=== PATIENT | female | born 1980 | race Hispanic/Latino ===

== ENCOUNTER 2016-10-25 14:14 | Emergency (ER) | payer BC ==
[2016-10-25 14:14] VITALS: BMI 18.8
[2016-10-25 14:22] VITALS: BP 119/82; PULSE 64; RESP 18; TEMP 97.7; O2SAT 100
--- NOTE | 2016-10-25 14:50 | ED PDOC ---
Arrival/HPI - General Chief Complaint: Abdominal Pain Time Seen by Provider: 10/25/16 14:36 Historian: Patient - History of Present Illness Narrative History of Present Illness (Text): 10/25/16 14:31 A 36 year old female, whose past medical history includes an ovarian cyst, presents to the emergency department complaining of right lower quadrant abdominal pain that began 2 hours ago. Pain is intermittent and described as a sharp burning pain alternating with a dull achy pain. Patient denies any nausea , vomiting, diarrhea, bowel changes, urinary changes, vaginal bleeding or any other complaints at this time. Patient reports she does not get her menstrual cycle because she in on control. PMD: Dr. Kenyon Time/Duration: 1-3 hours Symptom Onset: Sudden Symptom Course: Intermittent Quality: Aching, Burning, Other (sharp and dull) Activities at Onset: Rest Context: Home Past Medical History - Provider Review Nursing Documentation Reviewed: Yes - Infectious Disease Hx of Infectious Diseases: None - Tetanus Immunization Tetanus Immunization: Up to Date - Past Medical History Past Medical History: No Previous - Neurological Hx Migraine: Yes - Musculoskeletal/Rheumatological Hx Falls: No - Genitourinary/Gynecological Other/Comment: pre eclampsia - Psychiatric Hx Depression: No Hx Emotional Abuse: No Hx Physical Abuse: No Hx Substance Use: No - Past Surgical History Past Surgical History: No Previous - Surgical History Other/Comment: Left breast tumor removal. - Anesthesia Hx Anesthesia Reactions: No Hx Malignant Hyperthermia: No - Suicidal Assessment Feels Threatened In Home Enviroment: No Family/Social History - Physician Review Nursing Documentation Reviewed: Yes Family/Social History: No Known Family HX Smoking Status: Never Smoked Hx Alcohol Use: Yes (Wine) Frequency of alcohol use: Socially Hx Substance Use: No Hx Substance Use Treatment: No Allergies/Home Meds Allergies/Adverse Reactions: Allergies Penicillins Allergy (Verified 10/25/16 14:22) FEVER Sulfa (Sulfonamide Antibiotics) Adverse Reaction (Verified 10/25/16 14:22) FEVER sulfamethoxazole [From Bactrim] Adverse Reaction (Verified 10/25/16 14:22) FEVER trimethoprim [From Bactrim] Adverse Reaction (Verified 10/25/16 14:22) FEVER mmr Allergy (Uncoded 10/25/16 14:22) RASH Home Medications: Home Meds Medication Instructions Recorded Confirmed Citalopram Hydrobromide [Celexa] 40 mg PO DAILY 10/25/16 10/25/16 buPROPion [Bupropion HCl] 150 mg PO DAILY 10/25/16 10/25/16 Review of Systems - Physician Review All systems were reviewed & negative as marked: Yes - Review of Systems Gastrointestinal: Abdominal Pain. absent: Stool Changes, Diarrhea, Nausea, Vomiting Genitourinary Female: absent: Urine Output Changes, Vaginal Bleeding Physical Exam Vital Signs Reviewed: Yes Vital Signs Temp Pulse Resp BP Pulse Ox 10/25/16 14:16 97.7 F 64 18 119/82 100 Temperature: Afebrile Blood Pressure: Normal Pulse: Regular Respiratory Rate: Normal Appearance: Positive for: Well-Appearing, Non-Toxic, Comfortable Pain Distress: None Mental Status: Positive for: Alert and Oriented X 3 - Systems Exam Head: Present: Atraumatic, Normocephalic Pupils: Present: PERRL Extroacular Muscles: Present: EOMI Conjunctiva: Present: Normal Mouth: Present: Moist Mucous Membranes Neck: Present: Normal Range of Motion Respiratory/Chest: Present: Clear to Auscultation, Good Air Exchange. No: Respiratory Distress, Accessory Muscle Use Cardiovascular: Present: Regular Rate and Rhythm, Normal S1, S2. No: Murmurs Abdomen: Present: Normal Bowel Sounds. No: Tenderness, Distention, Peritoneal Signs, Rebound, Guarding Genitourinary/Pelvic Exam: Present: Normal External Genitalia, Other (Female Border Guard (Scribe - Dimpal ) present). No: Vaginal Discharge, Vaginal Bleeding , Vaginal Lesions, Adenexal Tenderness, Cervical Motion Tendernes Back: Present: Normal Inspection Upper Extremity: Present: Normal Inspection. No: Cyanosis, Edema Lower Extremity: Present: Normal Inspection. No: Edema Neurological: Present: GCS=15, CN II-XII Intact, Speech Normal Skin: Present: Warm, Dry, Normal Color. No: Rashes Psychiatric: Present: Alert, Oriented x 3, Normal Insight, Normal Concentration Medical Decision Making ED Course and Treatment: 10/25/16 14:31 Impression: A 36 year old female with right lower quadrant pain. Differential Diagnosis included but are not limited to: Appendicitis vs. ovarian torsion vs. ovarian cyst vs. uti Plan: -- Pelvis ultrasound -- Reassess and disposition Prior Visits: Notes and results from previous visits were reviewed. The patient last presented to the emergency department on 02/09/16 for evaluation of after a syncopal episode. Progress Notes: 10/25/16 16:00 Pelvis ultrasound: Creator : Charan Mcdermott MD COMPARISON: None available. FINDINGS: UTERUS: Measures 8.8 x 4.1 x 5.3 cm. There is a posterior subserosal fibroid, 1.3 x 1.1 x 1.2 Cm. No other uterine mass is identified. ENDOMETRIUM: Measures 7 mm in diameter. Unremarkable. CERVIX: No cervical abnormality identified. RIGHT OVARY: Measures 3.1 x 2.2 x 2.9 cm. No solid mass. Normal flow. LEFT OVARY: Measures 4.5 x 3.3 x 3.5 cm. No solid mass. Normal flow. 1.4 cm follicular cyst. 2.3 x 2.4 x 2.5 cm simple cyst, likely physiologic. FREE FLUID: No significant free fluid noted. OTHER FINDINGS: None. IMPRESSION: 2.5 cm simple left ovarian cyst, presumed physiologic. 1.3 cm sub serosal posterior uterine fibroid. Otherwise unremarkable. 10/25/16 17:21 Labs and ua grossly normal. Poc negative. On reevaluation, patient feels better. Spoke to Dr. Nunez who agrees with dispo. She was given detailed return instructions. - Lab Interpretations Lab Results: 10/25/16 14:55 10/25/16 14:55 Lab Results 10/25/16 16:27: Urine Color Yellow, Urine Appearance Clear, Urine pH 7.0, Ur Specific [place] <= 1.005, Urine Protein Negative, Urine Glucose (UA) Negative, Urine Ketones Negative, Urine Blood Negative, Urine Nitrate Negative, Urine Bilirubin Negative, Urine Urobilinogen 0.2, Ur Leukocyte Esterase Negative 10/25/16 14:55: WBC 5.4, RBC 3.75, Hgb 11.0 L, Hct 32.8 L, MCV 87.5, MCH 29.3, MCHC 33.5, RDW 15.5 H, Plt Count 229, MPV 10.3, Gran % 60.7, Lymph % (Auto) 29.6 , [place] % (Auto) 7.7 H, Eos % (Auto) 1.8, Baso % (Auto) 0.2, Gran # 3.30, Lymph # 1.6, [place] # 0.4, Eos # 0.1, Baso # 0.01, Sodium 136, Potassium 3.6, Chloride 100, Carbon Dioxide 28, Anion Gap 12, BUN 13, Creatinine 0.8, Est GFR ( Amer) > 60, Est GFR (Non-Af Amer) > 60, Random Glucose 81, Calcium 9.0, Phosphorus 3.7, Magnesium 2.0, Total Bilirubin 0.4, AST 29, ALT 19, Alkaline Phosphatase 47, Total Protein 7.6, Albumin 4.1, Globulin 3.5, Albumin/Globulin Ratio 1.2, Lipase 118 - RAD Interpretation Radiology Orders: 10/25/16 14:38 TRANSVAGINAL [US] Stat - Medication Orders Current Medication Orders: Discontinued Medications Ketorolac Tromethamine (Toradol) 30 mg IVP STAT STA Stop: 10/25/16 14:40 Last Admin: 10/25/16 14:59 Dose: 30 MG IVP Administration Document 10/25/16 14:59 KYLIE (Rec: 10/25/16 14:59 KYLIE [id number]) Charges for Administration # of IVP Administrations 1 - Scribe Statement The provider has reviewed the documentation as recorded by the Scribe Parvin Conn Provider Scribe Attestation: All medical record entries made by the Scribe were at my direction and personally dictated by me. I have reviewed the chart and agree that the record accurately reflects my personal performance of the history, physical exam, medical decision making, and the department course for this patient. I have also personally directed, reviewed, and agree with the discharge instructions and disposition. Disposition/Present on Arrival - Present on Arrival Any Indicators Present on Arrival: No History of DVT/PE: No History of Uncontrolled Diabetes: No Urinary Catheter: No History of Decub. Ulcer: No History Surgical Site Infection Following: None - Disposition Have Diagnosis and Disposition been Completed?: Yes Diagnosis: Constipation, Ovarian cyst Disposition: HOME/ ROUTINE Disposition Time: 17:13 Patient Plan: Discharge Condition: GOOD Discharge Instructions (ExitCare): Ovarian Cyst (ED) Additional Instructions: Follow up with PMD within 2 days. Return to ED if condition worsens. High fiber for constipation. Follow-up with paying teller for ovarian cysts Referrals: Cielo Kenyon MD [Primary Care Provider] - Follow up with primary
[2016-10-25 15:03] LABS: ADD MANUAL DIFF? NO
[2016-10-25 15:08] LABS: BASO # 0.01 K/mm3 (0.0-2.0); BASO % 0.2 % (0.0-3.0); EOS # 0.1 (0.0-0.7); EOS % 1.8 % (1.5-5.0); GRAN % 60.7 % (50.0-68.0); HEMATOCRIT 32.8 % (36.0-48.0); LYMPH # 1.6 (1.2-3.4); LYMPH % 29.6 % (22.0-35.0); MEAN CELL VOLUME 87.5 fL (80.0-105.0); MEAN CORPUSCULAR HEMOGLOBIN 29.3 pg (25.0-35.0); MEAN CORPUSCULAR HGB CONC 33.5 g/dl (31.0-37.0); MEAN PLATELET VOLUME 10.3 fl (7.0-11.0); MONO # 0.4 (0.1-0.6); MONO % 7.7 % (1.0-6.0); PLATELET COUNT 229 10^3/uL (120.0-450.0); RED CELL DISTRIBUTION WIDTH 15.5 % (11.5-14.5); WHITE BLOOD COUNT 5.4 10^3/ul (4.5-11.0)
[2016-10-25 15:16] LABS: ALB/GLOB RATIO 1.2 (1.1-1.8); ALKALINE PHOSPHATASE 47 U/L (38-133); ALT/SGPT 19 U/L (7-56); AST/SGOT 29 U/L (15-39); BILIRUBIN,TOTAL 0.4 mg/dL (0.2-1.3); BLOOD UREA NITROGEN 13 mg/dL (7-21); CARBON DIOXIDE 28 mmol/L (21-33); CHLORIDE 100 mmol/L (98-107); GFR AFRICAN-AMERICAN > 60; GLUCOSE,RANDOM 81 mg/dL (70-110); LIPASE 118 U/L (23-300); PHOSPHOROUS 3.7 mg/dL (2.5-4.5); POTASSIUM 3.6 mmol/L (3.6-5.0); SODIUM 136 mmol/L (132-148); TOTAL PROTEIN 7.6 g/dL (5.8-8.3)
--- NOTE | 2016-10-25 15:53 | US ---
HISTORY: RLQ pain, eval ovaries and appendix if possible COMPARISON: None available. TECHNIQUE: Transabdominal and transvaginal FINDINGS: UTERUS: Measures 8.8 x 4.1 x 5.3 cm. There is a posterior subserosal fibroid, 1.3 x 1.1 x 1.2 Cm. No other uterine mass is identified. ENDOMETRIUM: Measures 7 mm in diameter. Unremarkable. CERVIX: No cervical abnormality identified. RIGHT OVARY: Measures 3.1 x 2.2 x 2.9 cm. No solid mass. Normal flow. LEFT OVARY: Measures 4.5 x 3.3 x 3.5 cm. No solid mass. Normal flow. 1.4 cm follicular cyst. 2.3 x 2.4 x 2.5 cm simple cyst, likely physiologic. FREE FLUID: No significant free fluid noted. OTHER FINDINGS: None. IMPRESSION: 2.5 cm simple left ovarian cyst, presumed physiologic. 1.3 cm sub serosal posterior uterine fibroid. Otherwise unremarkable.
[2016-10-25 16:58] LABS: URINE APPEARANCE CLEAR (CLEAR); URINE BILIRUBIN NEGATIVE (NEGATIVE); URINE BLOOD NEGATIVE (NEGATIVE); URINE COLOR YELLOW (YELLOW); URINE GLUCOSE (UA) NEGATIVE (NEGATIVE); URINE KETONE NEGATIVE (NEGATIVE); URINE LEUKOCYTE ESTERASE NEGATIVE Leu/uL (NEGATIVE); URINE PROTEIN NEGATIVE mg/dL (<30 mg/dL); URINE UROBILINOGEN 0.2 E.U./dL (<1 E.U./dL)
== END 2016-10-25 17:22 | disposition home or self-care (01) ==
LOC: ED 14:14
DX: K59.00 Constipation, unspecified (principal); N83.202 Unspecified ovarian cyst, left side
CPT/HCPCS: 76830; 80053; 81003; 83690; 83735; 84100; 85025; 96374; 99284; J1885

== ENCOUNTER 2018-03-30 14:06 | Emergency (ER) | payer BC ==
[2018-03-30 14:07] VITALS: BMI 18.8
[2018-03-30 14:44] VITALS: RESP 18; TEMP 99.3
[2018-03-30] MEDS ORDERED: Sodium Chloride 0.9% 1,000 ML IV STA (14:47)
[2018-03-30 15:09] LABS: BASO # 0.03 K/mm3 (0.0-2.0); BASO % 0.5 % (0.0-3.0); EOS # 0.1 (0.0-0.7); EOS % 1.1 % (1.5-5.0); GRAN # 3.45 (1.4-6.5); GRAN % 62.6 % (50.0-68.0); HEMOGLOBIN 10.8 g/dL (12.0-16.0); LYMPH # 1.3 (1.2-3.4); LYMPH % 23.8 % (22.0-35.0); MEAN CELL VOLUME 82.1 fl (80.0-105.0); MEAN CORPUSCULAR HEMOGLOBIN 27.7 pg (25.0-35.0); MEAN CORPUSCULAR HGB CONC 33.8 g/dl (31.0-37.0); MONO # 0.7 (0.1-0.6); RBC 3.9 10^6/uL (3.5-6.1); RED CELL DISTRIBUTION WIDTH 13.6 % (11.5-14.5); URINE APPEARANCE CLEAR (CLEAR); URINE BILIRUBIN NEGATIVE (NEGATIVE); URINE BLOOD NEGATIVE (NEGATIVE); URINE COLOR YELLOW (YELLOW); URINE GLUCOSE (UA) NEGATIVE (NEGATIVE); URINE LEUKOCYTE ESTERASE NEGATIVE Leu/uL (NEGATIVE); URINE PROTEIN NEGATIVE mg/dL (<30 mg/dL); URINE UROBILINOGEN 0.2 E.U./dL (<1 E.U./dL); WHITE BLOOD COUNT 5.5 10^3/ul (4.5-11.0)
[2018-03-30 15:20] LABS: ALB/GLOB RATIO 1.3 (1.1-1.8); ALBUMIN 4.5 g/dL (3.0-4.8); ALT/SGPT 57 U/L (7-56); AST/SGOT 45 U/L (14-36); BLOOD UREA NITROGEN 13 mg/dL (7-21); CALCIUM 9.1 mg/dL (8.4-10.5); GFR NON-AFRICAN AMERICAN > 60; LIPASE 228 U/L (23-300)
[2018-03-30] MEDS ORDERED: Iohexol 350 MG/100 ML VIAL ONE (15:53)
--- NOTE | 2018-03-30 17:21 | CT ---
Date of service: 03/30/2018 PROCEDURE: CT Abdomen and Pelvis with contrast HISTORY: LLQ tenderness COMPARISON: Abdominal ultrasound performed 06/10/14 TECHNIQUE: Contrast dose: 100 mL Omnipaque 350 Radiation dose: Total exam DLP = 226.06 mGy-cm. This CT exam was performed using one or more of the following dose reduction techniques: Automated exposure control, adjustment of the mA and/or kV according to patient size, and/or use of iterative reconstruction technique. FINDINGS: LOWER THORAX: No visible consolidation, pleural effusion, or pneumothorax. Bilateral partially imaged breast prostheses. LIVER: Unremarkable. GALLBLADDER AND BILE DUCTS: Unremarkable. PANCREAS: Unremarkable. SPLEEN: Unremarkable. ADRENALS: Unremarkable. KIDNEYS AND URETERS: The kidneys enhance symmetrically. No hydronephrosis or obstructing calculus identified. Too small to characterize right renal hypodensity; statistically likely cysts. VASCULATURE: No aortic aneurysm. BOWEL: Stomach is nondistended. Lack of oral contrast limits evaluation for bowel pathology. Bowel loops appear within normal limits of caliber without evidence of obstruction. Moderate constipation. APPENDIX: No secondary signs of acute appendicitis. PERITONEUM: No significant free fluid. No definite free air. LYMPH NODES: No bulky adenopathy identified. BLADDER: Unremarkable. REPRODUCTIVE: Uterus is present. 1.8 x 2.9 cm left pelvic cystic lesion, likely ovarian cyst. BONES: No acute osseous abnormality is detected. OTHER FINDINGS: None. IMPRESSION: Moderate constipation. 1.8 x 2.9 cm probable left ovarian cyst. Recommend further evaluation with pelvic ultrasound. Too small to characterize right renal hypodensity; statistically likely cysts.
--- NOTE | 2018-03-30 19:15 | ED PDOC ---
Arrival/HPI - General Chief Complaint: Abdominal Pain Time Seen by Provider: 03/30/18 14:46 Historian: Patient - History of Present Illness Narrative History of Present Illness (Text): 03/30/18 19:12 38 year old female, with no significant past medical history, who presents to the ED c/o LLQ pain x 3-4 days. Patient states pain radiates to back occasionally. Patient states her menstrual period is 3 days late. Patient denies any fever, chills, vaginal discharge/bleeding, hematuria, dysuria, o any other complaints. Time/Duration: < week (3-4 days) Symptom Onset: Gradual Symptom Course: Unchanged Activities at Onset: Light Context: Home Past Medical History - Provider Review Nursing Documentation Reviewed: Yes - Infectious Disease Hx of Infectious Diseases: None - Tetanus Immunization Tetanus Immunization: Up to Date - Reproductive Menopause: No - Past Medical History Past Medical History: No Previous - Cardiac Hx Cardiac Disorders: No - Pulmonary Hx Respiratory Disorders: No - Neurological Hx Migraine: Yes - Musculoskeletal/Rheumatological Hx Falls: No - Genitourinary/Gynecological Other/Comment: pre eclampsia - Psychiatric Hx Depression: No Hx Emotional Abuse: No Hx Physical Abuse: No Hx Substance Use: No - Past Surgical History Past Surgical History: No Previous - Surgical History Other/Comment: Left breast tumor removal. - Anesthesia Hx Anesthesia: Yes Hx Anesthesia Reactions: No Hx Malignant Hyperthermia: No - Suicidal Assessment Feels Threatened In Home Enviroment: No Family/Social History - Physician Review Nursing Documentation Reviewed: Yes Family/Social History: Unknown Family HX Smoking Status: Never Smoked Hx Alcohol Use: Yes (Wine) Hx Substance Use: No Hx Substance Use Treatment: No Allergies/Home Meds Allergies/Adverse Reactions: Allergies Penicillins Allergy (Verified 03/30/18 14:40) FEVER Sulfa (Sulfonamide Antibiotics) Adverse Reaction (Verified 03/30/18 14:40) FEVER sulfamethoxazole [From Bactrim] Adverse Reaction (Verified 03/30/18 14:40) FEVER trimethoprim [From Bactrim] Adverse Reaction (Verified 03/30/18 14:40) FEVER mmr Allergy (Uncoded 10/25/16 14:22) RASH Review of Systems - Physician Review All systems were reviewed & negative as marked: Yes - Review of Systems Constitutional: Normal Eyes: Normal ENT: Normal Respiratory: Normal. absent: SOB, Cough Cardiovascular: Normal. absent: Chest Pain Gastrointestinal: Abdominal Pain (LLQ pain) Genitourinary Female: Normal. absent: Dysuria, Frequency Musculoskeletal: Normal. absent: Back Pain, Neck Pain Skin: Normal. absent: Rash Neurological: Normal. absent: Headache, Dizziness Endocrine: Normal Hemo/Lymphatic: Normal Psychiatric: Normal Physical Exam Vital Signs Reviewed: Yes Vital Signs Temp Pulse Resp BP Pulse Ox 03/30/18 19:35 80 18 108/68 100 03/30/18 18:00 78 18 110/70 98 03/30/18 16:07 82 18 105/70 98 03/30/18 14:31 99.3 F 87 18 125/85 100 Temperature: Afebrile Blood Pressure: Normal Pulse: Regular Respiratory Rate: Normal Appearance: Positive for: Well-Appearing, Non-Toxic, Comfortable Pain Distress: None Mental Status: Positive for: Alert and Oriented X 3 - Systems Exam Head: Present: Atraumatic, Normocephalic Pupils: Present: PERRL Extroacular Muscles: Present: EOMI Conjunctiva: Present: Normal Mouth: Present: Moist Mucous Membranes Neck: Present: Normal Range of Motion Respiratory/Chest: Present: Clear to Auscultation, Good Air Exchange. No: Respiratory Distress, Accessory Muscle Use Cardiovascular: Present: Regular Rate and Rhythm, Normal S1, S2. No: Murmurs Abdomen: No: Tenderness, Distention, Peritoneal Signs Back: Present: Normal Inspection Upper Extremity: Present: Normal Inspection. No: Cyanosis, Edema Lower Extremity: Present: Normal Inspection. No: Edema Neurological: Present: GCS=15, CN II-XII Intact, Speech Normal Skin: Present: Warm, Dry, Normal Color. No: Rashes Psychiatric: Present: Alert, Oriented x 3, Normal Insight, Normal Concentration Medical Decision Making ED Course and Treatment: 03/30/18 19:16 Impression: 38 year old female presents to the ED c/o LLQ pain x 3-4 days. Plan: -- Toradol -- Sodium Chloride -- Urine Culture -- Transvaginal US -- Reassess and Disposition Progress Notes: 03/30/18 19:21 US reviewed, shows: IMPRESSION: Small amount of free fluid in the left adnexa and cul-de-sac without visualized ovarian mass or torsion. Normal uterus. Thank you for allowing us to participate in the care of your patient. - Lab Interpretations Lab Results: 03/30/18 14:35 03/30/18 14:35 Lab Results 03/30/18 14:35: Sodium 141, Potassium 4.1, Chloride 106, Carbon Dioxide 24, Anion Gap 15, BUN 13, Creatinine 0.8, Est GFR ( Amer) > 60, Est GFR (Non- Af Amer) > 60, Random Glucose 84, Calcium 9.1, Magnesium 2.4 H, Total Bilirubin 0.4, AST 45 H, ALT 57 H, Alkaline Phosphatase 67, Total Protein 7.9, Albumin 4.5 , Globulin 3.5, Albumin/Globulin Ratio 1.3, Lipase 228 03/30/18 14:35: Urine Color Yellow, Urine Appearance Clear, Urine pH 6.0, Ur Specific [place] 1.015, Urine Protein Negative, Urine Glucose (UA) Negative, Urine Ketones Negative, Urine Blood Negative, Urine Nitrate Negative, Urine Bilirubin Negative, Urine Urobilinogen 0.2, Ur Leukocyte Esterase Negative 03/30/18 14:35: WBC 5.5, RBC 3.90, Hgb 10.8 L, Hct 32.0 L, MCV 82.1, MCH 27.7, MCHC 33.8, RDW 13.6, Plt Count 322, MPV 10.0, Gran % 62.6, Lymph % (Auto) 23.8, [place] % (Auto) 12.0 H, Eos % (Auto) 1.1 L, Baso % (Auto) 0.5, Gran # 3.45, Lymph # (Auto) 1.3, [place] # (Auto) 0.7 H, Eos # (Auto) 0.1, Baso # (Auto) 0.03 - RAD Interpretation Radiology Orders: 03/30/18 14:46 ABD & PELVIS IV CONTRAST ONLY [CT] Stat 03/30/18 17:25 TRANSVAGINAL [US] Stat - Medication Orders Current Medication Orders: Discontinued Medications Sodium Chloride (Sodium Chloride 0.9%) 1,000 mls @ 999 mls/hr IV .Q1H1M STA Stop: 03/30/18 15:47 Last Admin: 03/30/18 15:25 Dose: 999 mls/hr eMAR Start Stop Document 03/30/18 15:25 EWO (Rec: 03/30/18 15:25 EWO [id number]) Intravenous Solution Start Date 03/30/18 Start Time 15:25 End Date 03/30/18 End time 16:25 Total Infusion Time 60 Ketorolac Tromethamine (Toradol) 30 mg IVP STAT STA Stop: 03/30/18 14:47 Last Admin: 03/30/18 15:24 Dose: 30 mg MAR Pain Assessment Document 03/30/18 15:24 EW (Rec: 03/30/18 15:24 [facility] [id number]) Pain Reassessment Is this a pain reassessment? No Sleep Is patient sleeping during reassessment? No Presence of Pain Presence of Pain Yes Pain Scale Used Pain Scale Used Numeric Location Upper or Lower Lower Pain Location Body Site Abdomen Description Description Intermittent Intensity of Pain at present 5 IVP Administration Document 03/30/18 15:24 EW (Rec: 03/30/18 15:24 [facility] [id number]) Charges for Administration # of IVP Administrations 1 - Scribe Statement The provider has reviewed the documentation as recorded by the Scribe Dyana Berry All medical record entries made by the Scribe were at my direction and personally dictated by me. I have reviewed the chart and agree that the record accurately reflects my personal performance of the history, physical exam, medical decision making, and the department course for this patient. I have also personally directed, reviewed, and agree with the discharge instructions and disposition. Disposition/Present on Arrival - Present on Arrival Any Indicators Present on Arrival: No History of DVT/PE: No History of Uncontrolled Diabetes: No Urinary Catheter: No History of Decub. Ulcer: No History Surgical Site Infection Following: None - Disposition Have Diagnosis and Disposition been Completed?: Yes Diagnosis: Ovarian cyst Disposition: HOME/ ROUTINE Disposition Time: 19:10 Condition: GOOD Discharge Instructions (ExitCare): Ovarian Cyst (DC) Additional Instructions: ESTRELLITA WILKES, thank you for letting us take care of you today. The emergency medical care you received today was directed at your acute symptoms. If you were prescribed any medication, please fill it and take as directed. It may take several days for your symptoms to resolve. Return to the Emergency Department if your symptoms worsen, do not improve, or if you have any other problems. Please contact your doctor or call one of the physicians/clinics you have been referred to that are listed on the Patient Visit Information form that is included in your discharge packet. Bring any paperwork you were given at discharge with you along with any medications you are taking to your follow up visit. Our treatment cannot replace ongoing medical care by a primary care provider outside of the emergency department. Thank you for allowing the [facility] team to be part of your care today. Follow up with your primary care and [facility] doctor this week for re-evaluation and further management. Prescriptions: Ibuprofen [Motrin] 600 mg PO Q6 PRN #20 tab PRN Reason: Pain, Moderate (4-7) Referrals: Cielo Kenyon MD [Primary Care Provider] - Follow up with primary Forms: [email or web address] (Hungarian)
[2018-03-30 19:36] VITALS: BP 108/68; PULSE 80; O2SAT 100
--- NOTE | 2018-03-31 08:44 | US ---
Date of service: 03/30/2018 HISTORY: LLQ tenderness - r/o TOA/torsion COMPARISON: None available. TECHNIQUE: Real-time transabdominal and transvaginal ultrasound examination of the pelvis was performed. FINDINGS: UTERUS: Measures 7.6 x 5.9 by 5.2 cm. Normal in size and appearance. No fibroid or other mass lesion seen. ENDOMETRIUM: Measures 7 millimeters mm in diameter. Unremarkable. CERVIX: No cervical abnormality identified. RIGHT OVARY: Measures 3.3 x 2.1 x 3.5 cm. No solid mass. Normal flow. LEFT OVARY: Measures 4.4 x 2.3 x 4.1 cm. No solid mass. Normal flow. FREE FLUID: Mild amount of cul-de-sac fluid is appreciated. This is nonspecific. No internal echoes are seen in the fluid. OTHER FINDINGS: None. IMPRESSION: No ultrasound evidence of torsion. Small amount of nonspecific hypoechoic fluid in the cul-de-sac probably physiologic in a patient of this age. This agrees with preliminary report
== END 2018-03-30 19:35 | disposition home or self-care (01) ==
LOC: ED 14:06
DX: N83.202 Unspecified ovarian cyst, left side (principal)
CPT/HCPCS: 74177; 76830; 80053; 81003; 83690; 83735; 85025; 87086; 96361; 96374; 99284; J1885; J7030; Q9967

== ENCOUNTER 2018-08-14 14:12 | Emergency (ER) | payer BC ==
[2018-08-14 14:37] VITALS: BMI 19.5
[2018-08-14 15:48] LABS: BASO # 0.03 K/mm3 (0.0-2.0); BASO % 0.5 % (0.0-3.0); EOS # 0.1 (0.0-0.7); EOS % 2.1 % (1.5-5.0); GRAN # 3.33 (1.4-6.5); GRAN % 58.9 % (50.0-68.0); HEMOGLOBIN 12.1 g/dL (12.0-16.0); LYMPH # 1.8 (1.2-3.4); LYMPH % 31.1 % (22.0-35.0); MEAN CELL VOLUME 85.6 fl (80.0-105.0); MEAN CORPUSCULAR HEMOGLOBIN 27.6 pg (25.0-35.0); MEAN CORPUSCULAR HGB CONC 32.3 g/dl (31.0-37.0); MEAN PLATELET VOLUME 10.3 fl (7.0-11.0); MONO # 0.4 (0.1-0.6); MONO % 7.4 % (1.0-6.0); RBC 4.38 10^6/uL (3.5-6.1); RED CELL DISTRIBUTION WIDTH 14.6 % (11.5-14.5); WHITE BLOOD COUNT 5.7 10^3/uL (4.5-11.0)
[2018-08-14 15:58] LABS: ALB/GLOB RATIO 1.2 (1.1-1.8); ALBUMIN 4.8 g/dL (3.0-4.8); ALT/SGPT 19 U/L (7-56); AST/SGOT 27 U/L (14-36); BLOOD UREA NITROGEN 11 mg/dL (7-21); CALCIUM 9.6 mg/dL (8.4-10.5); GFR NON-AFRICAN AMERICAN > 60
--- NOTE | 2018-08-14 16:31 | CT ---
Date of service: 08/14/2018 PROCEDURE: CT HEAD WITHOUT CONTRAST. HISTORY: syncope, head injury COMPARISON: None available. TECHNIQUE: Axial computed tomography images were obtained through the head/brain without intravenous contrast. Radiation dose: Total exam DLP = 752.06 mGy-cm. This CT exam was performed using one or more of the following dose reduction techniques: Automated exposure control, adjustment of the mA and/or kV according to patient size, and/or use of iterative reconstruction technique. FINDINGS: HEMORRHAGE: No intracranial hemorrhage. BRAIN: No mass effect or edema. No atrophy or chronic microvascular ischemic changes. VENTRICLES: Unremarkable. No hydrocephalus. CALVARIUM: Unremarkable. PARANASAL SINUSES: Unremarkable as visualized. No significant inflammatory changes. MASTOID AIR CELLS: Unremarkable as visualized. No inflammatory changes. OTHER FINDINGS: None. IMPRESSION: No acute intracranial findings
[2018-08-14 16:33] LABS: TROPONIN I < 0.01 ng/mL
--- NOTE | 2018-08-14 17:13 | ED PDOC ---
Arrival/HPI - General Chief Complaint: Altered Mental Status Time Seen by Provider: 08/14/18 14:50 Historian: Patient - History of Present Illness Narrative History of Present Illness (Text): Patient is a 38 yr old female with PMH anxiety and depression (well controlled) who presents today to [facility] after having a syncopal episode today at work. Pt states that she was having a busy stressful day at work and did not have time to eat lunch. Around 1 pm patient began to feel dizzy and nauseous and woke up on the floor with slight pain to her left forehead. She continued to feel nauseous and slightly dizzy after the episode. She has had one similar episode in the past several years ago. She currently denies headache, f/c, chest pain, shortness of breath, abdominal pain, vomiting, dysuria, stool changes and extremity pain/weakness. 08/14/18 17:06 \ Time/Duration: Prior to Arrival, 1-3 hours Symptom Onset: Sudden Symptom Course: Improving, Resolved Context: Work Past Medical History - Provider Review Nursing Documentation Reviewed: Yes - Infectious Disease Hx of Infectious Diseases: None - Tetanus Immunization Tetanus Immunization: Up to Date - Reproductive Menopause: No - Past Medical History Past Medical History: No Previous - Cardiac Hx Cardiac Disorders: No - Pulmonary Hx Respiratory Disorders: No - Neurological Hx Migraine: Yes - Musculoskeletal/Rheumatological Hx Falls: No - Genitourinary/Gynecological Other/Comment: pre eclampsia - Psychiatric Hx Depression: No Hx Emotional Abuse: No Hx Physical Abuse: No Hx Substance Use: No - Past Surgical History Past Surgical History: No Previous - Surgical History Other/Comment: Left breast tumor removal. - Anesthesia Hx Anesthesia: Yes Hx Anesthesia Reactions: No Hx Malignant Hyperthermia: No - Suicidal Assessment Feels Threatened In Home Enviroment: No Family/Social History - Physician Review Nursing Documentation Reviewed: Yes Family/Social History: Unknown Family HX Smoking Status: Never Smoked Hx Alcohol Use: Yes (Wine) Hx Substance Use: No Hx Substance Use Treatment: No Allergies/Home Meds Allergies/Adverse Reactions: Allergies Penicillins Allergy (Verified 03/30/18 14:40) FEVER Sulfa (Sulfonamide Antibiotics) Adverse Reaction (Verified 03/30/18 14:40) FEVER sulfamethoxazole [From Bactrim] Adverse Reaction (Verified 03/30/18 14:40) FEVER trimethoprim [From Bactrim] Adverse Reaction (Verified 03/30/18 14:40) FEVER mmr Allergy (Uncoded 10/25/16 14:22) RASH Review of Systems - Physician Review All systems were reviewed & negative as marked: Yes - Review of Systems Constitutional: absent: Fevers Eyes: absent: Vision Changes ENT: absent: Hearing Changes, Epistaxis Respiratory: absent: SOB, Cough Cardiovascular: absent: Chest Pain, Palpitations, Edema Gastrointestinal: Nausea. absent: Abdominal Pain, Stool Changes, Vomiting Genitourinary Female: absent: Dysuria Musculoskeletal: absent: Arthralgias, Back Pain, Neck Pain Skin: absent: Rash, Laceration, Abscess Neurological: Headache, Dizziness. absent: Focal Weakness, Speech Changes, Facial Droop Endocrine: absent: Diaphoresis Physical Exam Vital Signs Reviewed: Yes Vital Signs Temp Pulse Resp BP Pulse Ox 08/14/18 14:37 98.9 F 72 18 121/81 100 Temperature: Afebrile Blood Pressure: Normal Pulse: Regular Respiratory Rate: Normal Appearance: Positive for: Well-Appearing, Non-Toxic, Comfortable Pain Distress: None Mental Status: Positive for: Alert and Oriented X 3 Finger Stick Blood Glucose: 93 - Systems Exam Head: Present: Abrasion (left superior forehead) Pupils: Present: PERRL Extroacular Muscles: Present: EOMI Mouth: Present: Moist Mucous Membranes Neck: Present: Normal Range of Motion Respiratory/Chest: Present: Clear to Auscultation, Good Air Exchange. No: Respiratory Distress, Accessory Muscle Use Cardiovascular: Present: Regular Rate and Rhythm, Normal S1, S2. No: Murmurs Abdomen: Present: Normal Bowel Sounds. No: Tenderness, Distention, Peritoneal Signs, Rebound, Guarding Back: No: Midline Tenderness, Paraspinal Tenderness Upper Extremity: Present: Normal Inspection, Normal ROM. No: Cyanosis, Edema, NORMAL PULSES Lower Extremity: Present: NORMAL PULSES. No: Normal Inspection, Edema, CALF TENDERNESS, Normal ROM Neurological: Present: GCS=15, CN II-XII Intact, Speech Normal Skin: Present: Warm, Dry, Normal Color, Abrasion (mild left superior forehead). No: Rashes Psychiatric: Present: Alert, Oriented x 3, Normal Insight, Normal Concentration Medical Decision Making ED Course and Treatment: Impression: 38 yr old female with PMH depression and anxiety who presents after syncopal episode at work today with head injury Plan: CBC CMP trop Chest X-ray Head CT orthostatic vitals 08/14/18 15:[address] Rick regarding admission, he agrees to admit the patient to his service for observation on remote telemetry 08/14/18 16:55 Reassessment Condition: Re-examined - Lab Interpretations Lab Results: Troponin I < 0.01 ng/mL 08/14/18 15:30 Total Bilirubin 0.2 mg/dL (0.2-1.3) 08/14/18 15:30 AST 27 U/L (14-36) 08/14/18 15:30 ALT 19 U/L (7-56) 08/14/18 15:30 Alkaline Phosphatase 65 U/L (38-126) 08/14/18 15:30 Total Protein 8.7 g/dL (5.8-8.3) H 08/14/18 15:30 Albumin 4.8 g/dL (3.0-4.8) 08/14/18 15:30 Globulin 3.9 gm/dL 08/14/18 15:30 Albumin/Globulin Ratio 1.2 (1.1-1.8) 08/14/18 15:30 - RAD Interpretation Narrative RAD Interpretations (Text): 08/14/18 18:[address] 08/14/18 15:01 IMPRESSION: No acute intracranial findings Chest X-Ray 08/14/18 16:40 IMPRESSION: No focal consolidation. Radiology Orders: 08/14/18 15:01 HEAD W/O CONTRAST [CT] Stat 08/14/18 16:40 CXR [CHEST ONE VIEW] [RAD] Stat - Medication Orders Current Medication Orders: Discontinued Medications Ondansetron HCl (Zofran Inj) 4 mg IVP STAT STA Stop: 08/14/18 15:02 Last Admin: 08/14/18 15:46 Dose: 4 mg IVP Administration Document 08/14/18 15:46 FEDERICO (Rec: 08/14/18 15:46 FEDERICO [id number]) Charges for Administration # of IVP Administrations 1 Disposition/Present on Arrival - Present on Arrival Any Indicators Present on Arrival: No History of DVT/PE: No History of Uncontrolled Diabetes: No Urinary Catheter: No History of Decub. Ulcer: No History Surgical Site Infection Following: None - Disposition Have Diagnosis and Disposition been Completed?: Yes Diagnosis: Atypical syncope, Syncopal episodes Disposition: HOSPITALIZED Disposition Time: 17:05 Patient Plan: Admission, Observation Patient Problems: Current Active Problems Problem Status Onset Atypical syncope Acute Syncopal episodes Acute Condition: STABLE Discharge Instructions (ExitCare): Syncope (ED) Forms: [facility] (Croatian)
--- NOTE | 2018-08-14 17:41 | RAD ---
HISTORY: syncope COMPARISON: Chest x-ray performed 02/09/16 TECHNIQUE: Chest, one view. FINDINGS: LUNGS: No focal consolidation. Please note that chest x-ray has limited sensitivity for the detection of pulmonary masses. PLEURA: No significant pleural effusion identified. No definite pneumothorax . CARDIOVASCULAR: Heart size appears within normal limits. No significant atherosclerotic calcification present. OSSEOUS STRUCTURES: No acute osseous abnormality identified. VISUALIZED UPPER ABDOMEN: Unremarkable. OTHER FINDINGS: None. IMPRESSION: No focal consolidation.
--- NOTE | 2018-08-14 23:24 | HP ---
DATE OF EXAM: 08/14/2018 HISTORY OF PRESENT ILLNESS: This is a 38-year-old female who is coming to the hospital because of syncopal episode. The patient states that she was at work and she had passed out. PAST MEDICAL HISTORY: She had a past medical history of anxiety and has been on Wellbutrin for medications. She also has a history of migraine headaches and has been taking injections monthly for her headaches, which have improved her migraines. She says that she was having a very hectic day and about 1 p.m., she became dizzy, nauseous. She had not eaten and she fell and believes that she has hit on the left forehead area. REVIEW OF SYSTEMS: She denied having chest pain. She had no palpitations. She had no abdominal pain, no back pain, no dysuria, no frequency, no hematuria. no dysarthria. No dysuria. All other review of symptoms are within normal limits except what is mentioned. ALLERGIES: TO PENICILLIN AND SULFA. SOCIAL HISTORY: She does not smoke or drink. FAMILY HISTORY: Noncontributory. PAST MEDICAL HISTORY: As above. HOME MEDICATIONS: Ibuprofen and her migraine headache medications and Wellbutrin. PHYSICAL EXAMINATION: VITAL SIGNS: Temperature is 99.9, pulse is 72, blood pressure is 121/81, respirations are 18, O2 saturation is 100, height is 5 feet 3 inches, weight is 110 pounds, BMI is 19.5. GENERAL: The patient is lying in bed, comfortable, and in no acute distress. HEENT: Atraumatic and normocephalic. Anicteric sclerae. Moist mucosa. [place] conjunctivae. No oral lesions. NECK: No JVD, anterior and posterior adenopathy, thyromegaly, or bruits. CARDIOVASCULAR: S1 and S2 regular. No murmurs, rubs or gallops. LUNGS: Clear to auscultation bilaterally. No wheezes, rales, or rhonchi. ABDOMEN: Bowel sounds are positive. Soft, nontender and nondistended. No hepatosplenomegaly. No rebound and no guarding EXTREMITIES: No cyanosis, clubbing, or edema. NEUROLOGIC: No facial asymmetry. Tongue is midline. No uvula deviation. Power is 5/5 upper extremities and lower extremities. Sensation intact in upper extremities and lower extremities. PSYCHIATRIC: She is awake, alert and oriented x3. No anxiety or depression. She has normal affect. GENITOURINARY: No CVA tenderness. VASCULAR: 2+ pulses in the carotid pulses and pedal pulses. SKIN: No erythema or nodules SPINE: Shows normal curvature. LABORATORY DATA: White count of 5.7, hemoglobin 12.1, platelet count is 290. Chemistry shows a sodium of 140, potassium 3.9, creatinine 0.9. AST and ALT 27 and 19, troponin is 0.01. Total protein is 8.7. The patient had a chest x-ray that shows no infiltrate. She had a CT of the head that shows no acute intracranial abnormalities. ASSESSMENT: 1. Syncope. 2. Migraine headaches. 3. Anxiety. PLAN: The patient is going to be admitted to the hospital. So, the patient is going to be brought in as an observation. She is going to be in telemetry. She was given Zofran. She says she does feel better. I did speak to Dr. Nunez, who is her father to update him on the patient's diagnosis and plan of care. We will not get neuro or cardiac evaluation unlikely that she has arrhythmias, but we will place on telemetry to evaluate this may be vasovagal episode. I do not think migraine headaches are causing the symptoms. Joaquin Rick MD
--- NOTE | 2018-08-15 05:24 | CP.PCM.HP ---
Past Patient History - Infectious Disease Hx of Infectious Diseases: None - Tetanus Immunizations Tetanus Immunization: Up to Date - Past Social History Smoking Status: Never Smoked - CARDIAC Hx Cardiac Disorders: No - PULMONARY Hx Respiratory Disorders: No - NEUROLOGICAL Hx Migraine: Yes - MUSCULOSKELETAL/RHEUMATOLOGICAL Hx Falls: No - GENITOURINARY/GYNECOLOGICAL Other/Comment: pre eclampsia - PSYCHIATRIC Hx Depression: No Hx Emotional Abuse: No Hx Physical Abuse: No Hx Substance Use: No - SURGICAL HISTORY Other/Comment: Left breast tumor removal. - ANESTHESIA Hx Anesthesia: Yes Hx Anesthesia Reactions: No Hx Malignant Hyperthermia: No Meds Allergies/Adverse Reactions: Allergies Allergy/AdvReac Type Severity Reaction Status Date / Time Penicillins Allergy FEVER Verified 03/30/18 14:40 Sulfa (Sulfonamide AdvReac FEVER Verified 03/30/18 14:40 Antibiotics) sulfamethoxazole AdvReac FEVER Verified 03/30/18 14:40 [From Bactrim] trimethoprim [From Bactrim] AdvReac FEVER Verified 03/30/18 14:40 mmr Allergy RASH Uncoded 10/25/16 14:22 Results - Vital Signs Recent Vital Signs: Last Vital Signs Temp 98.9 F 08/14/18 14:37 Pulse 55 L 08/15/18 01:49 Resp 14 08/15/18 01:49 BP 98/63 L 08/15/18 01:49 Pulse Ox 98 08/15/18 01:49 - Labs Result Diagrams: 08/14/18 15:30 08/14/18 15:30 Labs: Laboratory Results - last 24 hr 08/14/18 08/14/18 08/14/18 14:30 15:30 15:30 WBC 5.7 RBC 4.38 Hgb 12.1 Hct 37.5 MCV 85.6 D MCH 27.6 MCHC 32.3 RDW 14.6 H Plt Count 290 MPV 10.3 Gran % 58.9 Lymph % (Auto) 31.1 [place] % (Auto) 7.4 H Eos % (Auto) 2.1 Baso % (Auto) 0.5 Gran # 3.33 Lymph # (Auto) 1.8 [place] # (Auto) 0.4 Eos # (Auto) 0.1 Baso # (Auto) 0.03 Sodium 140 Potassium 3.9 Chloride 104 Carbon Dioxide 28 Anion Gap 12 BUN 11 Creatinine 0.9 Est GFR ( Amer) > 60 Est GFR (Non-Af Amer) > 60 POC Glucose (mg/dL) 93 Random Glucose 91 Calcium 9.6 Phosphorus 3.8 Magnesium 2.2 Total Bilirubin 0.2 AST 27 ALT 19 Alkaline Phosphatase 65 Troponin I < 0.01 Total Protein 8.7 H Albumin 4.8 Globulin 3.9 Albumin/Globulin Ratio 1.2
[2018-08-15 08:31] VITALS: BP 106/58; PULSE 60; RESP 16; O2SAT 98
[2018-08-15 08:44] VITALS: TEMP 98.1
--- NOTE | 2018-08-15 09:29 | CARD ---
APPROVED REPORT Date of service: 08/14/2018 EKG Measurement Heart [id number] <Conclusion> Normal sinus rhythm Normal ECG
--- NOTE | 2018-08-15 23:13 | DS ---
HISTORY OF PRESENT ILLNESS: This is a 38-year-old female who came to the hospital because of syncopal episode. The patient was observed overnight and had no episodes. She had no significant abnormality on telemetry. She did have bradycardia while she was sleeping. She has no complaints of any chest pain or shortness of breath. No headache or dizziness. PHYSICAL EXAMINATION: VITAL SIGNS: Temperature is 98.1, pulse of 60, blood pressure is 106/54, respirations 16, and O2 saturation is 98%. GENERAL: The patient is lying in bed, flat, comfortable. HEENT: No oral lesion. Anicteric sclerae. Moist mucosa. NECK: No JVD, adenopathy, or thyromegaly. CARDIOVASCULAR: S1 and S2, regular. No murmurs, rubs, or gallops. LUNGS: Clear to auscultation bilaterally. No wheeze, rales, or rhonchi. ABDOMEN: Bowel sounds are positive, soft, nontender and nondistended. EXTREMITIES: No cyanosis, clubbing or edema. ASSESSMENT: 1. Syncope. 2. Migraine headaches. 3. Anxiety. PLAN: The patient is going to continue her Wellbutrin and her migraine headache medications. She is going to be discharged home. She has no symptoms. CONDITION: Stable. ACTIVITY: Increase as tolerated. FOLLOWUP: Follow up with in 1 to 2 weeks. Joaquin Rick MD
== END 2018-08-15 08:45 | disposition home or self-care (01) ==
LOC: ED 14:12 → ERH 17:08 → UNDOADMOB 17:08
DX: R55 Syncope and collapse (principal); F41.9 Anxiety disorder, unspecified
CPT/HCPCS: 70450; 71045; 80053; 81025; 82948; 83735; 84100; 84484; 85025; 93005; 96374; 99285; J2405